=== PATIENT | female | born 1975 | race Caucasian/White ===

== ENCOUNTER 2021-05-19 21:23 | Emergency (ER) | payer SELFPAY ==
[~2021-05-19] VITALS: Ht 160 cm; Wt 72.6 kg
[~2021-05-19 21:23] MED LIST: DIAZ10TA PO; HYDR-3720 PO
[2021-05-19] MEDS ORDERED: ASPIRIN 81 MG CHEW (CHILDREN'S ASA) PO STA (22:16)
[2021-05-19] MEDS ORDERED: RX-ALBUTEROL INHALER 8.5 GM HFA (PROAIR) IH STA (22:16)
--- NOTE | 2021-05-19 22:28 | ED Cough/URI ---
General Chief Complaint: Respiratory Problems Stated Complaint: CP/BACK PAIN/SOB/COUGH/NEG COVID TEST History of Present Illness Date Seen by Provider: May 19, 2021 Time Seen by Provider: 22:10 Initial Comments 45-year-old female presents for cough, congestion, chest burning and pain from coughing, and shortness of breath present for approximately 5 days and is progressively getting worse. She has tried DayQuil with no improvement in her symptoms. She works at [employer] and had a negative Covid test at the onset of symptoms. She has received the COVID vaccine in May 2020 and had COVID in 2019. She denies any cardiac history and feels the chest congestion is causing the pain, no pain in her arm or jaw. No Influenza vaccine. Timing/Duration: week, getting worse Severity/Quality: moderate, productive cough Prior Episodes/Possible Cause: no prior episodes Associated Symptoms: chest pain/soreness, cough, nasal congestion, nasal drainage, shortness of breath, wheezing (SHIRLENE REEVES) Allergies and Home Medications Allergies Coded Allergies: No Known Drug Allergies (Unverified , 07/30/11) Patient Home Medication List Home Medication List Reviewed: Yes (SHIRLENE REEVES) Cefdinir (Cefdinir) 300 Mg Capsule, 300 MG PO BID Prescribed by: SHIRLENE REEVES on 05/19/21 2319 Diazepam (Valium 10 Mg Tab) 10 Mg Tablet, 1 EACH PO TID PRN, (Reported) Entered as Reported by: ADAM DANGELO on 07/30/11 1238 Hydrocodone Bit/Acetaminophen (Hydrocodone-Apap 10-325 Tablet) 1 Each Tablet, 0.5-1 EACH PO Q 4 - 6 HRS PRN Prescribed by: BEAR FUENTES on 07/30/11 1554 Review of Systems Review of Systems Constitutional: see HPI; No chills, No diaphoresis, No fever; malaise, weakness EENTM: see HPI, nose congestion, throat pain; No nose pain Respiratory: see HPI, cough, dyspnea on exertion, short of breath, wheezing Cardiovascular: no symptoms reported, see HPI Gastrointestinal: no symptoms reported, see HPI Genitourinary: decreased output, other (flank pain) : No (hysterectomy) (SHIRLENE REEVES) All Other Systems Reviewed Negative Unless Noted: Yes (SHIRLENE REEVES) Past Ccehkhv-Endsaj-Gozvtn Hx Family Medical History Reviewed Nursing Family Hx (SHIRLENE REEVES ALLEN) Physical Exam Vital Signs - First Documented 05/19/21 22:08 Temp 36.8 Pulse 82 Resp 20 B/P (MAP) 158/104 (122) Pulse Ox 98 O2 Delivery Room Air (GIANNA,ALEXANDER K DO) Capillary Refill : (SHIRLENE REEVESP) Height: '" Weight: lbs. oz. kg; BMI Method: General Appearance: mild distress Eyes: Bilateral Eye Normal Inspection, Bilateral Eye PERRL, Bilateral Eye EOMI HEENT: PERRL/EOMI, normal ENT inspection, TMs normal, pharynx normal; No pharyngeal erythema, No tonsillar exudate Neck: non-tender, full range of motion, supple, normal inspection Respiratory: chest non-tender, no respiratory distress, decreased breath sounds, rhonchi (left lower lobe), wheezing (Bilat Upper) Cardiovascular: normal peripheral pulses, regular rate, rhythm Gastrointestinal: normal bowel sounds, non tender, soft Extremities: normal range of motion, non-tender, normal inspection, normal capillary refill Neurologic/Psychiatric: no motor/sensory deficits, alert, normal mood/affect, oriented x 3 Skin: normal color, warm/dry (SHIRLENE REEVES ALLEN) Progress/Results/Core Measures Suspected Sepsis SIRS Temperature: Pulse: Respiratory Rate: Laboratory Tests 05/19/21 22:20: White Blood Count 9.8 Blood Pressure / Mean: Laboratory Tests 05/19/21 22:20: Creatinine 0.70, Platelet Count 335, Total Bilirubin 0.5 (SHIRLENE REEVES ALLEN) Results/Orders Lab Results Laboratory Tests Test 05/19/21 22:20 05/19/21 22:28 05/19/21 22:40 Range/Units White Blood Count 9.8 4.3-11.0 10^3/uL Red Blood Count 4.52 3.80-5.11 10^6/uL Hemoglobin 13.9 11.5-16.0 g/dL Hematocrit 40 35-52 % Mean Corpuscular Volume 89 80-99 fL Mean Corpuscular Hemoglobin 31 25-34 pg Mean Corpuscular Hemoglobin Concent 34 32-36 g/dL Red Cell Distribution Width 12.9 10.0-14.5 % Platelet Count 335 130-400 10^3/uL Mean Platelet Volume 11.5 9.0-12.2 fL Immature Granulocyte % (Auto) 0 % Neutrophils (%) (Auto) 58 42-75 % Lymphocytes (%) (Auto) 33 12-44 % Monocytes (%) (Auto) 5 0-12 % Eosinophils (%) (Auto) 4 0-10 % Basophils (%) (Auto) 1 0-10 % Neutrophils # (Auto) 5.6 1.8-7.8 10^3/uL Lymphocytes # (Auto) 3.3 1.0-4.0 10^3/uL Monocytes # (Auto) 0.5 0.0-1.0 10^3/uL Eosinophils # (Auto) 0.3 0.0-0.3 10^3/uL Basophils # (Auto) 0.1 0.0-0.1 10^3/uL Immature Granulocyte # (Auto) 0.0 0.0-0.1 10^3/uL Sodium Level 140 135-145 MMOL/L Potassium Level 3.1 L 3.6-5.0 MMOL/L Chloride Level 104 98-107 MMOL/L Carbon Dioxide Level 23 21-32 MMOL/L Anion Gap 13 5-14 MMOL/L Blood Urea Nitrogen 10 7-18 MG/DL Creatinine 0.70 0.60-1.30 MG/DL Estimat Glomerular Filtration Rate 90 BUN/Creatinine Ratio 14 Glucose Level 134 H 70-105 MG/DL Calcium Level 9.0 8.5-10.1 MG/DL Corrected Calcium 8.9 8.5-10.1 MG/DL Total Bilirubin 0.5 0.1-1.0 MG/DL Aspartate Amino Transf (AST/SGOT) 23 5-34 U/L Alanine Aminotransferase (ALT/SGPT) 34 0-55 U/L Alkaline Phosphatase 88 40-136 U/L Troponin I < 0.028 <0.028 NG/ML C-Reactive Protein High Sensitivity 0.97 H 0.00-0.50 MG/DL Total Protein 7.8 6.4-8.2 GM/DL Albumin 4.1 3.2-4.5 GM/DL Influenza Type A Antigen NEGATIVE NEGATIVE Influenza Type B Antigen NEGATIVE NEGATIVE SARS-CoV-2 RNA (RT-PCR) Negative Negative Urine Color YELLOW Urine Clarity SL CLOUDY Urine pH 6.0 5-9 Urine Specific [place] 1.025 H 1.016-1.022 Urine Protein NEGATIVE NEGATIVE Urine Glucose (UA) NEGATIVE NEGATIVE Urine Ketones NEGATIVE NEGATIVE Urine Nitrite NEGATIVE NEGATIVE Urine Bilirubin 1+ H NEGATIVE Urine Urobilinogen 0.2 < = 1.0 MG/DL Urine Leukocyte Esterase NEGATIVE NEGATIVE Urine RBC (Auto) NEGATIVE NEGATIVE Urine RBC NONE /HPF Urine WBC 0-2 /HPF Urine Squamous Epithelial Cells 10-25 H /HPF Urine Renal Epithelial Cells NONE /HPF Urine Crystals NONE /LPF Urine Bacteria LARGE H /HPF Urine Casts NONE /LPF Urine Mucus MODERATE H /LPF Urine Culture Indicated YES (ALEXANDER KATZ DO) Medications Given in ED Current Medications Medications Dose Ordered Sig/Meghann Route Start Time Stop Time Status Last Admin Dose Admin Ceftriaxone Sodium 2000 mg/ Sodium Chloride 50 ml @ 240 mls/hr ONCE ONCE IV 05/19/21 23:15 05/19/21 23:27 DC 05/19/21 23:17 240 MLS/HR (ALEXANDER KATZ DO) Vital Signs/I&O 05/19/21 05/19/21 05/19/21 22:08 22:08 23:33 Temp 36.8 36.8 Pulse 82 82 Resp 20 20 B/P (MAP) 158/104 (122) 158/104 Pulse Ox 98 98 O2 Delivery Room Air Room Air Room Air (ALEXANDER KATZ DO) Vital Signs/I&O Capillary Refill : (SHIRLENE REEVES) Progress Note : Time: 22:10 Progress Note Patient seen and evaluated, will obtain EKG, lab work and Covid/flu testing. Will give normal saline 1 L per IV. Ventolin inhaler 2 puffs. 2300 Covid and flu negative, UTI present. Will give Rocephin 2 g IV. Patient reports mild improvement since using the Ventolin.K+ 3.1, will give po K+ 20 mEq. 2320 discharge instructions and return precautions reviewed with the patient. (SHIRLENE REEVES) ECG Initial ECG Impression Date: May 19, 2021 Initial ECG Impression Time: 22:13 Initial ECG Rate: 89 Initial ECG Rhythm: Normal Sinus Initial ECG Intervals: Normal Initial ECG Intervals FL 137, QRSD 95, QT 362, QTc 441. [place] P 60, QRS 50, T- Initial ECG Impression: Normal Initial ECG Comparisson: No Previous ECG Available (SHIRLENE REEVES) Diagnostic Imaging Diagonstic Imaging: Xray Plain Films/CT/US/NM/MRI: chest Comments NAME: LUCAS IRIZARRY [facility] REC#: [id number] PT STATUS: REG ER : 1975 PHYSICIAN: SHIRLENE REEVES ADMIT DATE: 05/19/21/ER Draft Date of Exam:05/19/21 CHEST 1 VIEW, AP/PA ONLY CLINICAL INDICATIONS: Patient with shortness of air, cough and congestion x 1 week. EXAM: Portable chest x-ray upright view. COMPARISON: None. FINDINGS: Lungs/pleura: Mild curvilinear opacities at both lung bases suspected to represent atelectasis. The is slight elevation of the right hemidiaphragm. Otherwise, lungs are clear. There is no pneumothorax. There is no pleural effusion. Mediastinum: Unremarkable. Pulmonary vasculature: Unremarkable. Heart: Unremarkable. Bones/extrathoracic soft tissue: Partially visualized lower cervical anterior disk fusion. IMPRESSION: Mild bibasilar atelectasis. There is no definite lung infiltrate. Dictated on workstation # [id number] Dict: 05/19/[id number] Trans: 05/19/212255 [facility] [id number] Interpreted by: ОЛЕГ EMMANUEL MD Electronically signed by: Reviewed: Reviewed by Me (SHIRLENE REEVES) Departure Impression Primary Impression: Cough Additional Impressions: UTI (urinary tract infection) Qualified Codes: N30.00 - Acute cystitis without hematuria Bronchitis Hypokalemia Disposition: HOME, SELF-CARE Condition: Stable Departure-Patient Inst. Decision time for Depature: 23:20 (SHIRLENE REEVES) Referrals: [facility] [place] NO,LOCAL PHYSICIAN (PCP) Primary Care Physician Patient Instructions: Acute Bronchitis, Adult (DC), Urinary Tract Infection, Adult (DC) Add. Discharge Instructions: Take Muccinex 1 tablet twice daily with a full glass of water. Eat 1 cup of fresh blueberries or drink 1 cup of cranberry juice daily. Take Dayquil and Nyquil for symptoms. Increase water intake, 16 oz every 2 hours while awake. Use the inhaler 2 puffs every 4 hours. Take antibiotics, as prescribed. Establish care with [facility]. Alternate between Tylenol 650 mg and ibuprofen 600 mg every 4 hours for fever or discomfort. Return to emergency department for new, urgent healthcare needs. All discharge instructions reviewed with patient and/or family. Voiced understanding. Scripts Cefdinir (Cefdinir) 300 Mg Capsule 300 MG PO BID, #14 CAP 0 Refills Prov: SHIRLENE REEVES 05/19/21 Work/School Note: Work Release Form Date Seen in the Emergency Department: May 19, 2021 Restrictions: Return-No Fever (24hrs) Other Restrictions Listed Below: Return to work when symptoms improve and no medications for 48 hours ATTENDING PHYSICIAN NOTE: I WAS PHYSICALLY PRESENT ER PHYSICIAN WHEN THIS PATIENT WAS IN ER, BUT I WAS NOT INVOLVED IN ANY DECISION MAKING OR ANY CARE OF THIS PATIENT. (ALEXANDER KATZ DO) SHIRLENE REEVES May 19, 2021 22:28 ALEXANDER KATZ DO May 20, 2021 03:43
[2021-05-19] MEDS ORDERED: NS IV 1000 ML 1,000 ML IV SCH (22:30)
[2021-05-19 22:35] LABS: BASOPHILS # (AUTO) 0.1 10^3/uL (0.0-0.1); BASOPHILS % (AUTO) 1 % (0-10); EOSINOPHILS # (AUTO) 0.3 10^3/uL (0.0-0.3); EOSINOPHILS % (AUTO) 4 % (0-10); HEMATOCRIT 40 % (35-52); HEMOGLOBIN 13.9 g/dL (11.5-16.0); LYMPHOCYTES # (AUTO) 3.3 10^3/uL (1.0-4.0); LYMPHOCYTES % (AUTO) 33 % (12-44); MEAN CORPUSCULAR HEMOGLOBIN 31 pg (25-34); MEAN CORPUSCULAR HGB CONC 34 g/dL (32-36); MEAN CORPUSCULAR VOLUME 89 fL (80-99); MEAN PLATELET VOLUME 11.5 fL (9.0-12.2); MONOCYTES # (AUTO) 0.5 10^3/uL (0.0-1.0); MONOCYTES % (AUTO) 5 % (0-12); NEUTROPHILS # (AUTO) 5.6 10^3/uL (1.8-7.8); NEUTROPHILS % (AUTO) 58 % (42-75); PLATELET COUNT 335 10^3/uL (130-400); WHITE BLOOD COUNT 9.8 10^3/uL (4.3-11.0)
[2021-05-19 22:45] LABS: BILIRUBIN,URINE 1+ (NEGATIVE); CLARITY,URINE SL CLOUDY; COLOR,URINE YELLOW; GLUCOSE, URINE (UA) NEGATIVE (NEGATIVE); KETONES,URINE NEGATIVE (NEGATIVE); LEUKOCYTE ESTERASE ,URINE NEGATIVE (NEGATIVE); NITRITE,URINE NEGATIVE (NEGATIVE); PROTEIN,URINE NEGATIVE (NEGATIVE)
[2021-05-19 22:49] LABS: ALBUMIN 4.1 GM/DL (3.2-4.5); CHLORIDE 104 MMOL/L (98-107); POTASSIUM 3.1 MMOL/L (3.6-5.0); SODIUM 140 MMOL/L (135-145)
[2021-05-19 22:52] LABS: GLUCOSE 134 MG/DL (70-105); TOTAL PROTEIN 7.8 GM/DL (6.4-8.2)
[2021-05-19 22:53] LABS: CARBON DIOXIDE 23 MMOL/L (21-32)
[2021-05-19 22:54] LABS: BILIRUBIN,TOTAL 0.5 MG/DL (0.1-1.0)
[2021-05-19 22:55] LABS: ALKALINE PHOSPHATASE 88 U/L (40-136); GFR ESTIMATED 90
[2021-05-19 22:56] LABS: BUN/CREATININE RATIO 14
[2021-05-19 22:57] LABS: BACTERIA,URINE LARGE /HPF; WBC,URINE 0-2 /HPF
--- NOTE | 2021-05-19 22:57 | Diagnostic Imaging Report ---
CLINICAL INDICATIONS: Patient with shortness of air, cough and congestion x 1 week. EXAM: Portable chest x-ray upright view. COMPARISON: None. FINDINGS: Lungs/pleura: Mild curvilinear opacities at both lung bases suspected to represent atelectasis. The is slight elevation of the right hemidiaphragm. Otherwise, lungs are clear. There is no pneumothorax. There is no pleural effusion. Mediastinum: Unremarkable. Pulmonary vasculature: Unremarkable. Heart: Unremarkable. Bones/extrathoracic soft tissue: Partially visualized lower cervical anterior disk fusion. IMPRESSION: Mild bibasilar atelectasis. There is no definite lung infiltrate. Dictated by: Dictated on workstation # [id number]
[2021-05-19 22:58] LABS: ALANINE AMINOTRANSFERASE 34 U/L (0-55)
[2021-05-19] MEDS ORDERED: cefTRIAXone 2,000 MG in NS (IVPB) 50 ML IV ONE (23:15)
[2021-05-19] MEDS ORDERED: CEFD300C3 PO (23:19)
[2021-05-19] MEDS ORDERED: KCL 10 MEQ TAB (MICRO K) PO STA (23:23)
[2021-05-19 23:33] VITALS: BP 158/104
== END 2021-05-19 23:34 | disposition home or self-care (01) ==
LOC: EDUNIT# 21:23 → ER 21:24
DX: N39.0 Urinary tract infection, site not specified (principal); J40 Bronchitis, not specified as acute or chronic; E87.6 Hypokalemia; Z20.822 Contact with and (suspected) exposure to COVID-19
CPT/HCPCS: 36415; 71045; 80053; 81000; 84484; 85025; 86141; 87040; 87088; 87635; 87636; 87804; 93005